=== PATIENT | male | born 1950 | race Caucasian/White ===

== ENCOUNTER → 2016-11-03 | Outpatient (CLI) | payer OTHER ==
[~2016-11-03] MED LIST: ALBUAER19 INH; ALPR-411 PO; ASPI81TA25 PO; CICL160A INH; LEVO75TA PO; LOSA50TA6 PO; MELA1TAB22; MULT-411 PO; PARO1TAB27 PO; SIMV40TA2 PO; TIOTCAP INH
[2016-11-03 09:46] LABS: BASO % 0.4 %; BASO ABS # 0.03 K/uL (0-0.2); COMPLETE YES; EOS % 5.5 %; HEMATOCRIT 45.3 % (42-52); IG% 0.1 %; LYMPH % 28.8 %; LYMPH ABS # 1.99 K/uL (1.2-3.4); MEAN CELL VOLUME 92.3 fL (80-100); MEAN CORPUSCULAR HEMOGLOBIN 32.4 pg (25-34); MEAN CORPUSCULAR HGB CONC 35.1 g/dl (32-36); MEAN PLATELET VOLUME 11.7 fL (7.4-10.4); MONO % 6.9 %; NEUT % 58.3 %; PLATELET COUNT 160 K/uL (130-400); RED BLOOD COUNT 4.91 M/uL (4.7-6.1); WHITE BLOOD COUNT 6.92 K/uL (4.8-10.8)
[2016-11-03 10:14] LABS: ESTIMATED AVERAGE GLUCOSE 117 mg/dl; HA1C FLAG Normal (Normal)
[2016-11-03 10:41] LABS: ALT/SGPT 48 U/L (12-78); AST/SGOT 23 U/L (15-37); BLOOD UREA NITROGEN 15 mg/dl (7-18); BUN/CREATININE RATIO 12.9 (10-20); CALCIUM 9.1 mg/dl (8.5-10.1); CARBON DIOXIDE 25 mmol/L (21-32); CHLORIDE 105 mmol/L (98-107); GLUCOSE 127 mg/dl (70-99); POTASSIUM 4.2 mmol/L (3.5-5.1); SODIUM 140 mmol/L (136-145)
[2016-11-03 10:53] LABS: ALB/GLOB RATIO 1.1 (0.9-2); ALKALINE PHOSPHATASE 104 U/L (45-117); CHOLESTEROL 122 mg/dl (0-200); CHOLESTEROL/HDL RATIO 4.7; HDL CHOLESTEROL 26 mg/dl; LDL CHOLESTEROL CALCULATED 44 mg/dl; PHOSPHORUS 2.6 mg/dl (2.5-4.9); TRIGLYCERIDES 260 mg/dl (0-150); URIC ACID 7.4 mg/dl (2.6-7.2); VERY LOW DENSITY LIPOPROT CALC 52 mg/dl
[2016-11-04 09:57] LABS: C-REACTIVE PROT HIGHSEN 3.5 MG/L
== END | disposition home or self-care (01) ==
LOC: C.LAB 06:50
PROVIDERS: ATTEND Family Medicine
DX: R73.09 Other abnormal glucose (principal)

== ENCOUNTER → 2016-12-26 | Outpatient (CLI) | payer OTHER ==
--- NOTE | 2016-12-27 06:10 | PAP/PSG TECHNICIAN REPORT ---
[facility] Manager Recruiting Polysomnogram Report Study name: None Report date: 12/27/2016 Study date: 12/26/2016 Referring Physician: Carrillo Kennedy M.D. Name: AMELIA LARRY Interpreting Physician: Carrillo Kennedy M.D. Date of : 1950 Manager Recruiting: Eileen Mendoza RPS. Sex: Male Age: 66 StudyType: PSG Weight: 217 lbs Height: 66 years, Height 5' 9" Neck Circum: 18.5 inches BMI: 32.04 Medications: Losartan Potassium 50 mg, Omeprazole 40 mg, Paroxetine 10 mg, Simvastatin 40 mg, Alprazolam 1.5mg, Levothyroxine 100 mcg, Spiriva Capsule, [place]ves[place] 80 mcg, Diclofenac Sodium 75 mg, Aspirin 81 mg, Melatonin 5 mg, 5-HTP 100 mg, Probiotic 100 mil, Vitamin D 2000 mg, Vitamin B12, Ventolin HFA 90 mcg Patient History 66 yr. old male here for a diagnostic sleep study. Patient complains of loud snoring, and witnessed apneas. He has been told after surgical procedures he should be evaluated for RUDY. Patients [place] Sleepiness scale score is 3/24. Parameters Monitored NPSG: E1-M2, E2-M1, Fp1-M2, Fp2-M1, F3-M2, F4-M2, F4-M1, C3-M2, C4-M2, C4-M1, O1-M2, O2-M2, O2-M1, T3-M2, T4-M1, P3-M2, P4-M1, CHIN1, CHIN2, HR, EKG, Legs, PFLOW, SNOR, FLOW, CFLOW, Tidal Volume, THOR, ABDO, SpO2, PLTH, CPRESS, ETCO2 Wave, ETCO2, pH Sleep Architecture Sleep Stages Time at Lights Off 9:26:09 PM STAGES Time (min.) TST (%) Time at Lights On 5:44:39 AM Wake 224.0 -- Total Recording Time (TRT) 499.50 min. N1 45.5 17 Total Sleep Period (TSP) 396.0 min. N2 199.5 73 Total Sleep Time (TST) 274.5min. N3 16.5 6 Awake Time 224.0 min. REM 13.0 5 Wake after Sleep Onset 122.5 min. Sleep Efficiency (SE) 55 % Sleep Onset Latency (BIRD) 101.5 min. Number of Stage 1 Shifts None Awakenings 25 Stage Changes 87 Number of REM periods 4 REM 13.0 5 REM Latency 323.5 min. NREM 261.5 95 Body Position Analysis Supine Right Left Side Prone Vertical Total Sleep Time (min.) 74.6 0.0 27.9 27.88 364.8 0.8 Total Sleep Time (%) 2% 0% 10% 10 87% N/A% Total Sleep Time REM (min.) 0.0 0.0 0.0 None 13.0 0.0 Total Sleep Time NREM (min.) 6.5 0.0 27.9 None 227.1 0.0 Intermittent Wake (min.) 68.1 27.5 2.9 None 124.7 0.8 Total Sleep Period (%) 9% None None None None None Arousals Myoclonus (PLM) * Events Count Index Events Count Index Spontaneous 4 1 Events Awake (PLMW) 61 16.3 Respiratory 2 0.4 Events Asleep w/ Arousal (PLMA) 8 1.7 PLM 7 2 Events Asleep w/o Arousal (PLMS) 14 3.1 Snoring 10 2 Total Asleep 22 4.8 Total 23 5 Total 83 10 Respiratory Analysis * CA OA MA CH H RERA Total Count 0 0 0 0 4 0 4 Index 0.0 0.0 0.0 0 0.9 0 0.9 Mean Duration 0.0 0.0 0.0 0.00 19.8 0.0 19.8 Longest Duration 0.0 0.0 0.0 0.00 0.0 0.0 30.5 Respiratory Event Summary Total Supine ~Supine Right Left Prone REM NREM Apneas Count 0 0 0 N/A 0 0 0 0 Index 0.0 0 0 N/A 0.0 0 0 0 Hypopneas (4% Desat) Count 4 0 4 N/A 3 1 0 4 Index 0.9 0.0 1 N/A 6.5 0.2 0.0 0.9 Apneas & All Hypopneas Count 4 0 4 N/A 3 1 0 4 Index 0.9 0 1 N/A 6 0 0.0 0.9 Respiratory Events (Touch Up Painter Hand+All Hyp+RERA) Count 4 0 4 N/A 3 1 0 4 Index 0.9 0 1 N/A 6.5 0.2 0.0 0.9 Respiratory Related Arousal Count 2 0 2 N/A 2 0 0 2 Index 0.4 0 0 N/A 4 0 0 0 Snoring Analysis Supine Right Left Prone REM NREM Total Snore duration 35.9 min Snores count 59 N/A 336 1,290 143 1,542 1,685 Snore mean duration 1.3 Sec Snores index 545 N/A 723 322 660.0 353.8 368.3 TST with snoring (%) 13.1% Desaturation Event Summary: Minimum %SpO2 Event Count Mean/Min/Max Duration(sec.) Desaturation Index % Time In Bed > 90 23 31.2 / 6.0 / 60.0 6.8 41.2 86 - 90 9 23.4 / 7.0 / 49.0 1.9 58.7 81 - 85 0 N/A 0.0 0.0 76 - 80 0 N/A 0.0 0.0 71 - 75 0 N/A 0.0 0.0 66 - 70 0 N/A 0.0 0.0 61 - 65 0 N/A 0.0 0.0 56 - 60 0 N/A 0.0 0.0 51 - 55 0 N/A 0.0 0.0 < 50 0 N/A 0.0 0.0 Total REM NREM Awake <50% 0.0 min. 0.0 min. 0.0 min. 0.0 min. 51 - 60% 0.0 min. 0.0 min. 0.0 min. 0.0 min. 61 - 70% 0.0 min. 0.0 min. 0.0 min. 0.0 min. 71 - 80% 0.0 min. 0.0 min. 0.0 min. 0.0 min. 81 - 90% 289.7 min. 3.4 min. 171.4 min. 114.9 min. 91 - 100% 203.1 min. 9.6 min. 90.1 min. 103.4 min. Average 90 91 90 91 Minimum SpO2 84 88 85 84 Desaturation Event Index 3.0 0.0 1.8 4.6 # Desat. Events below 89% 13 N/A 6 7 Time(%) with Saturation below 89% 15.1 0.0 6.3 8.8 Time(min.) with Saturation below 89% 74.5 0.0 31.2 43.3 Time (mins) REM (mins) NREM (mins) % of TST SpO2 Below 90% 7 N/A N7 28.3 SpO2 Below 88% 3 0 0 3 Heart Rate Analysis Min (bpm) Max (bpm) Average (bpm) Awake 56 101 72 NREM 55 77 63 REM 59 72 63 Overall 55 77 63 Supplemental O2 Values Minimum O2 level: None Value Start Time End Time Manager Recruiting Comments Mr. Larry slept in the right, left, supine and prone positions. No cardiac arrhythmia or PLMs noted. No bruxism noted. Snoring was noted and scored as a 3 on a scale of 0 through 5. (0=no snoring, 5=snoring loud enough to be heard through a closed door or down the [address] way) Mr. Larry awoke to use the restroom once during the night. Mr. Larry stated,I did not sleep as well as I do when I am in my own bed. The final report will be interpreted and signed by a sleep physician. The completed physician report will then be placed in the patient medical record. Therapy (cm H2O) 0 TIB (min.) 498.5 TST (min.) 274.5 Sleep Onset (min.) 101.5 REM Onset From Sleep (min.) 323.5 Sleep Efficiency % 55 Wakefulness (%) 45 Wakefulness (min.) 224.0 NREM 1 (%) 17 NREM 1 (min.) 45.5 NREM 2 (%) 73 NREM 2 (min.) 199.5 NREM 3 (%) 6 NREM 3 (min.) 16.5 REM (%) 5 REM (min.) 13.0 # Arousals 23 Arousal Index 5 # Snore 1,685 Snore Index 368.3 AHI 0.9 AHI Supine 0 AHI Non-Supine 1 NREM AHI 0.9 REM AHI 0.0 RDI 0.9 # Obstructive Apnea 0 # Central Apnea 0 # Mixed Apnea 0 # Hypopneas 4 RERAs 0 Total Respiratory Events 7 Time Below SpO2 89% (min.) 31.2 Mean NREM SpO2 (%) 90 Mean REM SpO2 (%) 91 Mean Sleep SpO2 (%) 90 Min NREM SpO2 (%) 85 Min REM SpO2 (%) 88 Position Supine (min.) 74.6 Position Non-supine (min.) 268.0 LM Index Sleep 4.8 LM Index NREM 4.4 LM Index REM 13.8 Mean Heart Rate (bpm) 63 Min Heart Rate (bpm) 55
--- NOTE | 2016-12-27 16:29 | POLYSOMNOGRAPH REPORT ---
CLINICAL DATA: A 66-year-old male with BMI of 32.04 referred by myself and Dr. Mayo for a sleep study. The patient has loud snoring and witnessed apnea. He was told after surgical procedures to be evaluated for sleep apnea. He does have underlying COPD. His [place] Sleepiness Score is 3/24. SLEEP ARCHITECTURE: Total sleep period was 396 minutes. Total sleep time was 274.5 minutes divided between 261.5 minutes of non-REM sleep and 13 minutes of REM sleep. Sleep onset latency was delayed at 101.5 minutes. REM latency was markedly delayed at 323.5 minutes. Sleep efficiency was reduced at 55%. Wake after sleep onset was markedly elevated at 122.5 minutes. Sleep consisted of stage N1 17%, N2 73%, N3 6%, and REM 5%. AROUSAL DATA: Twenty-three arousals were recorded for an index of 5 per hour. PLM DATA: Twenty-two limb movements during sleep were noted for an index of 4.8 per hour with arousal index of 1.7 per hour. RESPIRATORY DATA: There was no evidence of clinically significant sleep apnea. The AHI was 0.9. There were 4 hypopneic episodes, the mean duration of which was 19.8 seconds. OXIMETRY DATA: Very mild nocturnal hypoxemia was seen. Oxygen osiel was 85% during non-REM sleep. The mean saturation was 90%. Time below 88% was 3 minutes. EKG: Heart rates ranged from 55-77 beats per minute. No arrhythmias noted. INWEAVER'S COMMENTS: The patient slept in the right, left, supine, and prone positions. Snoring was moderate, rated 3 on a scale of 1-5. IMPRESSION: No evidence of clinically significant sleep apnea/hypopnea, nocturnal hypoxemia or abnormal limb movements during sleep to explain this patient's symptoms. RECOMMENDATIONS: The patient should continue to practice good sleep hygiene. COLLEEND
== END | disposition home or self-care (01) ==
LOC: C.NEUR 20:00
PROVIDERS: ATTEND Internal Medicine Pulmonary Disease
DX: J44.9 Chronic obstructive pulmonary disease, unspecified (principal); R49.0 Dysphonia; R06.83 Snoring; R06.81 Apnea, not elsewhere classified

== ENCOUNTER → 2017-09-27 | Outpatient (CLI) | payer OTHER ==
[2017-09-27 09:40] LABS: BASO % 0.6 %; BASO ABS # 0.04 K/uL (0-0.2); EOS % 6.1 %; EOS ABS # 0.39 K/uL (0-0.5); HEMATOCRIT 46.3 % (42-52); IG# 0.02 K/uL (0.00-0.02); LYMPH % 31.1 %; LYMPH ABS # 1.98 K/uL (1.2-3.4); MEAN CELL VOLUME 91.3 fL (80-100); MEAN CORPUSCULAR HEMOGLOBIN 31.6 pg (25-34); MEAN CORPUSCULAR HGB CONC 34.6 g/dl (32-36); MEAN PLATELET VOLUME 11.7 fL (7.4-10.4); MONO % 7.7 %; MONO ABS # 0.49 K/uL (0.11-0.59); NEUT % 54.2 %; NEUT ABS # 3.44 K/uL (1.4-6.5); PLATELET COUNT 166 K/uL (130-400); RED CELL DISTRIBUTION WIDTH CV 13.2 % (11.5-14.5); WHITE BLOOD COUNT 6.36 K/uL (4.8-10.8)
[2017-09-27 09:44] LABS: HEMOGLOBIN A1C 5.6 % (4.5-5.6)
[2017-09-27 10:15] LABS: ALBUMIN 3.8 gm/dl (3.4-5.0); ALT/SGPT 54 U/L (12-78); AST/SGOT 27 U/L (15-37); BLOOD UREA NITROGEN 13 mg/dl (7-18); CALCIUM 9.4 mg/dl (8.5-10.1); CARBON DIOXIDE 30 mmol/L (21-32); CREATININE 1.19 mg/dl (0.60-1.40); GLUCOSE 125 mg/dl (70-99); POTASSIUM 4.5 mmol/L (3.5-5.1); SODIUM 137 mmol/L (136-145)
[2017-09-27 10:24] LABS: ALKALINE PHOSPHATASE 94 U/L (45-117); CHOLESTEROL 129 mg/dl (0-200); LDL CHOLESTEROL CALCULATED 46 mg/dl; TOTAL PROTEIN 7.4 gm/dl (6.4-8.2); TRANSFERRIN 224 mg/dl (200-360); URIC ACID 7.4 mg/dl (2.6-7.2)
== END | disposition home or self-care (01) ==
LOC: C.LAB 06:53
PROVIDERS: ATTEND Family Medicine
DX: E88.81 Metabolic syndrome and other insulin resistance (principal); E55.9 Vitamin D deficiency, unspecified; D51.9 Vitamin B12 deficiency anemia, unspecified; E78.9 Disorder of lipoprotein metabolism, unspecified; R53.83 Other fatigue